=== PATIENT | female | born 1960 | race Caucasian/White ===

== ENCOUNTER → 2016-12-19 | Outpatient (CLI) | payer BC ==
[2016-12-19 07:33] LABS: BASO # 0.1 K/mm3 (0.0-0.2); BASO % 0.9 % (0.0-1.0); EOS # 0.1 K/mm3 (0.0-0.50); EOS % 2.1 % (0.0-3.0); LARGE UNSTAINED CELL # 0.1 K/mm3 (0.0-0.4); LARGE UNSTAINED CELL % 1.4 % (0.0-4.0); LYMPH # 1.9 K/mm3 (1.5-4.5); LYMPH % 26.7 % (24.0-44.0); MEAN CORPUSCULAR HEMOGLOBIN 28.4 pg (27.0-33.0); MEAN CORPUSCULAR HGB CONC 34.1 g/dl (32.0-36.5); MEAN CORPUSCULAR VOLUME 83.3 fl (80.0-96.0); MONO # 0.4 K/mm3 (0.0-0.8); MONO % 5.1 % (0.0-5.0); NEUTROPHILS # 4.4 K/mm3 (1.8-7.7); NEUTROPHILS % 63.8 % (36.0-66.0); PLATELET COUNT, AUTOMATED 296 k/mm3 (150-450); RED CELL DISTRIBUTION WIDTH 12.3 % (11.5-14.5); WHITE BLOOD COUNT 6.9 K/mm3 (4.0-10.0)
[2016-12-19 07:54] LABS: ALBUMIN 3.6 GM/DL (3.2-5.2); ALBUMIN/GLOBULIN RATIO 1.06 (1.00-1.93); ALKALINE PHOSPHATASE 81 U/L (45-117); ALT/SGPT 49 U/L (12-78); ANION GAP 8 MEQ/L (8-16); AST/SGOT 28 U/L (15-37); BLOOD UREA NITROGEN 23 MG/DL (7-18); CALCIUM LEVEL 8.9 MG/DL (8.5-10.1); CARBON DIOXIDE LEVEL 32 MEQ/L (21-32); CHLORIDE LEVEL 97 MEQ/L (98-107); CREATININE FOR GFR 0.82 MG/DL (0.55-1.02); GLOMERULAR FILTRATION RATE > 60.0 (>51); GLUCOSE, FASTING 213 MG/DL (70-105); POTASSIUM SERUM 3.9 MEQ/L (3.5-5.1); SODIUM LEVEL 137 MEQ/L (136-145)
== END ==
LOC: M LAB 07:05
PROVIDERS: ATTEND Family Medicine
DX: E11.59 Type 2 diabetes mellitus with other circulatory complications (principal)

== ENCOUNTER → 2017-03-29 | Outpatient (CLI) | payer BC ==
[2017-03-29 08:10] LABS: BASO % 0.6 % (0.0-1.0); EOS # 0.2 K/mm3 (0.0-0.50); EOS % 2.4 % (0.0-3.0); LARGE UNSTAINED CELL # 0.1 K/mm3 (0.0-0.4); LARGE UNSTAINED CELL % 0.8 % (0.0-4.0); LYMPH # 1.5 K/mm3 (1.5-4.5); LYMPH % 20.6 % (24.0-44.0); MEAN CORPUSCULAR HEMOGLOBIN 28.6 pg (27.0-33.0); MEAN CORPUSCULAR HGB CONC 33.1 g/dl (32.0-36.5); MEAN CORPUSCULAR VOLUME 86.6 fl (80.0-96.0); MONO # 0.4 K/mm3 (0.0-0.8); NEUTROPHILS % 70.5 % (36.0-66.0); PLATELET COUNT, AUTOMATED 249 k/mm3 (150-450); RED CELL DISTRIBUTION WIDTH 12.6 % (11.5-14.5)
[2017-03-29 08:43] LABS: ALBUMIN 3.6 GM/DL (3.2-5.2); ALKALINE PHOSPHATASE 80 U/L (45-117); ALT/SGPT 32 U/L (12-78); ANION GAP 6 MEQ/L (8-16); AST/SGOT 19 U/L (15-37); BILIRUBIN,TOTAL 0.8 MG/DL (0.2-1.0); BLOOD UREA NITROGEN 18 MG/DL (7-18); CARBON DIOXIDE LEVEL 31 MEQ/L (21-32); CHLORIDE LEVEL 103 MEQ/L (98-107); CHOLESTEROL LEVEL 199 MG/DL (<200); CREATININE FOR GFR 0.77 MG/DL (0.55-1.02); GLOMERULAR FILTRATION RATE > 60.0 (>51); GLUCOSE, FASTING 132 MG/DL (70-105); POTASSIUM SERUM 4.4 MEQ/L (3.5-5.1); SODIUM LEVEL 140 MEQ/L (136-145); TOTAL PROTEIN 7.2 GM/DL (6.4-8.2); TRIGLYCERIDES LEVEL 126 MG/DL (<150)
== END ==
LOC: M LAB 07:28
PROVIDERS: ATTEND Family Medicine
DX: E11.59 Type 2 diabetes mellitus with other circulatory complications (principal)

== ENCOUNTER → 2017-09-12 | Outpatient (REF) | payer BC | LOC: M SFHCLERA 12:40 | PROVIDERS: ATTEND Nurse Practitioner Family | DX: J02.9 Acute pharyngitis, unspecified (principal) ==

== ENCOUNTER → 2017-10-16 | Outpatient (CLI) | payer BC ==
[2017-10-16 08:40] LABS: ALBUMIN 3.7 GM/DL (3.2-5.2); ALBUMIN/GLOBULIN RATIO 1.09 (1.00-1.93); ALKALINE PHOSPHATASE 83 U/L (45-117); ALT/SGPT 30 U/L (12-78); ANION GAP 8 MEQ/L (8-16); AST/SGOT 22 U/L (7-37); BILIRUBIN,TOTAL 0.8 MG/DL (0.2-1.0); BLOOD UREA NITROGEN 16 MG/DL (7-18); CALCIUM LEVEL 8.7 MG/DL (8.5-10.1); CARBON DIOXIDE LEVEL 28 MEQ/L (21-32); CHLORIDE LEVEL 105 MEQ/L (98-107); CHOLESTEROL LEVEL 131 MG/DL (<200); CHOLESTEROL RISK RATIO 3.046 (<5); CREATININE FOR GFR 0.69 MG/DL (0.55-1.02); GLOMERULAR FILTRATION RATE > 60.0 (>51); GLUCOSE, FASTING 139 MG/DL (70-105); HDL CHOLESTEROL 43 MG/DL (>40); LDL CHOLESTEROL 69.8 MG/DL (<100); NON-HDL-C 88 MG/DL; POTASSIUM SERUM 3.9 MEQ/L (3.5-5.1); SODIUM LEVEL 141 MEQ/L (136-145); TOTAL PROTEIN 7.1 GM/DL (6.4-8.2); TRIGLYCERIDES LEVEL 91 MG/DL (<150)
[2017-10-16 11:32] LABS: ESTIMATED AVERAGE GLUCOSE 237 MG/DL (60-110); HEMOGLOBIN A1c 9.9 %
== END ==
LOC: M LAB 07:15
DX: M25.511 Pain in right shoulder (principal); E11.59 Type 2 diabetes mellitus with other circulatory complications
CPT/HCPCS: 84443

== ENCOUNTER → 2017-10-25 | Outpatient (REF) | payer BC | LOC: M SFHCLERA 10:15 | DX: J02.9 Acute pharyngitis, unspecified (principal) ==

== ENCOUNTER → 2018-01-30 | Outpatient (CLI) | payer BC ==
[2018-01-30 09:09] LABS: ANION GAP 5 MEQ/L (8-16); BLOOD UREA NITROGEN 18 MG/DL (7-18); CALCIUM LEVEL 8.6 MG/DL (8.5-10.1); CARBON DIOXIDE LEVEL 30 MEQ/L (21-32); CHLORIDE LEVEL 105 MEQ/L (98-107); CREATININE FOR GFR 0.71 MG/DL (0.55-1.30); FREE T4 1.14 NG/DL (0.76-1.46); GLOMERULAR FILTRATION RATE > 60.0 (>51); GLUCOSE, FASTING 162 MG/DL (70-100); POTASSIUM SERUM 4.2 MEQ/L (3.5-5.1); SODIUM LEVEL 140 MEQ/L (136-145)
[2018-01-30 10:05] LABS: ESTIMATED AVERAGE GLUCOSE 174 MG/DL (60-110); HEMOGLOBIN A1c 7.7 %
[2018-01-30 10:37] LABS: TOTAL 25(OH) VITAMIN D 57.4 NG/ML (30.0-100.0)
== END ==
LOC: M LAB 07:47
DX: E11.59 Type 2 diabetes mellitus with other circulatory complications (principal); F33.1 Major depressive disorder, recurrent, moderate
CPT/HCPCS: 84443

== ENCOUNTER → 2018-08-12 | Outpatient (CLI) | payer BC ==
[2018-08-12 08:14] LABS: ALBUMIN 3.1 GM/DL (3.2-5.2); ALBUMIN/GLOBULIN RATIO 0.94 (1.00-1.93); ALKALINE PHOSPHATASE 88 U/L (45-117); ALT/SGPT 33 U/L (12-78); ANION GAP 7 MEQ/L (8-16); AST/SGOT 22 U/L (7-37); BILIRUBIN,TOTAL 0.8 MG/DL (0.2-1.0); BLOOD UREA NITROGEN 13 MG/DL (7-18); CARBON DIOXIDE LEVEL 27 MEQ/L (21-32); CHLORIDE LEVEL 105 MEQ/L (98-107); CHOLESTEROL LEVEL 169 MG/DL (<200); CREATININE FOR GFR 0.69 MG/DL (0.55-1.30); FREE T4 1.15 NG/DL (0.76-1.46); GLOMERULAR FILTRATION RATE > 60.0 (>51); GLUCOSE, FASTING 229 MG/DL (70-100); HDL CHOLESTEROL 44 MG/DL (>40); LDL CHOLESTEROL 105 MG/DL (<100); NON-HDL-C 125 MG/DL; POTASSIUM SERUM 4.1 MEQ/L (3.5-5.1); SODIUM LEVEL 139 MEQ/L (136-145); TOTAL PROTEIN 6.4 GM/DL (6.4-8.2); TRIGLYCERIDES LEVEL 100 MG/DL (<150)
[2018-08-12 14:30] LABS: ESTIMATED AVERAGE GLUCOSE 220 MG/DL (60-110); HEMOGLOBIN A1c 9.3 %
== END ==
LOC: M LAB 06:57
DX: E11.59 Type 2 diabetes mellitus with other circulatory complications (principal); E78.5 Hyperlipidemia, unspecified
CPT/HCPCS: 84443

== ENCOUNTER → 2018-11-08 | Outpatient (CLI) | payer BC ==
[2018-11-08 07:56] LABS: BLOOD UREA NITROGEN 25 MG/DL (7-18); CALCIUM LEVEL 8.9 MG/DL (8.5-10.1); CARBON DIOXIDE LEVEL 30 MEQ/L (21-32); CHLORIDE LEVEL 98 MEQ/L (98-107); CREATININE FOR GFR 0.94 MG/DL (0.55-1.30); GLOMERULAR FILTRATION RATE > 60.0 (>51); GLUCOSE, FASTING 115 MG/DL (70-100); POTASSIUM SERUM 4.2 MEQ/L (3.5-5.1); SODIUM LEVEL 136 MEQ/L (136-145)
[2018-11-08 11:01] LABS: HEMOGLOBIN A1c 6.8 %
== END ==
LOC: M LAB 06:57
PROVIDERS: ATTEND Physician Assistant
DX: E11.59 Type 2 diabetes mellitus with other circulatory complications (principal)

== ENCOUNTER → 2019-04-30 | Outpatient (CLI) | payer BC ==
--- NOTE | 2019-04-30 08:29 | REP ---
Clinical: Bilateral shoulder pain . Technique: Internal rotation, external rotation, and Y view right and left shoulders. Findings: Left shoulder demonstrates a minimal cortical irregularity and subtle spurring at the acromioclavicular joint. The glenohumeral joint is intact and normal. The subacromial space is normal. No periarticular calcifications or loose bodies are appreciated. Surrounding soft tissues are unremarkable. Right shoulder demonstrates mild cortical irregularity and mild spurring at the acromioclavicular joint. The glenohumeral joint is intact and normal. The subacromial space is normal. No periarticular calcifications or loose bodies are appreciated. Surrounding soft tissues are unremarkable. Impression: Mild arthritic changes involving the bilateral acromioclavicular joints (right greater than left). Electronically Signed by Alfonzo Mariscal MD 04/30/2019 08:20 A
== END ==
LOC: M RAD 07:48
PROVIDERS: ATTEND Physician Assistant
DX: M25.512 Pain in left shoulder (principal)

== ENCOUNTER 2019-05-29 11:45 | Outpatient (RCR) | payer BC | END 2019-05-31 | LOC: M PT 11:45 | PROVIDERS: ATTEND Physician Assistant | DX: Z51.89 Encounter for other specified aftercare (principal); M25.511 Pain in right shoulder; M25.512 Pain in left shoulder ==

== ENCOUNTER 2019-06-05 08:00 | Outpatient (RCR) | payer BC | END 2019-06-30 | LOC: M PT 08:00 | PROVIDERS: ATTEND Physician Assistant | DX: Z51.89 Encounter for other specified aftercare (principal); M25.511 Pain in right shoulder; M25.512 Pain in left shoulder ==

== ENCOUNTER → 2019-10-30 | Outpatient (CLI) | payer BC ==
--- NOTE | 2019-10-31 01:33 | REP ---
Clinical: Left knee pain. Technique: AP, lateral, bilateral oblique and sunrise views of the left knee. Findings: Early arthritic changes include cortical irregularity and spurring involving the femoral condyles, spurring of the tibial spines with irregular sclerosis to the tibial plateau as well as spurring along the posterior patellar margin with minimal subchondral sclerosis. No acute fracture dislocation. No effusion. Impression: Early osteoarthritic degenerative changes Electronically Signed by Alfonzo Mariscal MD 10/31/2019 01:24 A
== END ==
LOC: M RAD 14:24
PROVIDERS: ATTEND Physician Assistant
DX: M25.562 Pain in left knee (principal); M17.12 Unilateral primary osteoarthritis, left knee

== ENCOUNTER 2019-11-24 07:56 | Outpatient (RCR) | payer BC | END 2019-11-29 | LOC: M PT 07:56 | PROVIDERS: ATTEND Physician Assistant | DX: M25.562 Pain in left knee (principal) ==

== ENCOUNTER → 2019-11-24 | Outpatient (CLI) | payer BC ==
[2019-11-24 07:26] LABS: BASO % 0.5 % (0.0-1.0); EOS # 0.1 10^3/uL (0.0-0.5); EOS % 1.6 % (0.0-3.0); HEMATOCRIT 40.8 % (36.0-47.0); HEMOGLOBIN 13.3 g/dl (12.0-15.5); LYMPH # 1.8 10^3/uL (1.5-5.0); LYMPH % 24.1 % (24.0-44.0); MEAN CORPUSCULAR HEMOGLOBIN 27.4 pg (27.0-33.0); MEAN CORPUSCULAR HGB CONC 32.6 g/dl (32.0-36.5); MONO # 0.5 10^3/uL (0.0-0.8); MONO % 6.6 % (0.0-5.0); NEUTROPHILS % 66.9 % (36.0-66.0); PLATELET COUNT, AUTOMATED 280 10^3/uL (150-450); RED BLOOD COUNT 4.86 10^6/uL (4.00-5.40); WHITE BLOOD COUNT 7.5 10^3/uL (4.0-10.0)
[2019-11-24 07:43] LABS: HEMOGLOBIN A1c 9.4 %
[2019-11-24 07:51] LABS: ALBUMIN 3.6 GM/DL (3.2-5.2); ALT/SGPT 57 U/L (12-78); BILIRUBIN,TOTAL 0.8 MG/DL (0.2-1.0); BLOOD UREA NITROGEN 27 MG/DL (7-18); CALCIUM LEVEL 9.4 MG/DL (8.5-10.1); CARBON DIOXIDE LEVEL 28 MEQ/L (21-32); CHLORIDE LEVEL 102 MEQ/L (98-107); CREATININE FOR GFR 0.98 MG/DL (0.55-1.30); GLOMERULAR FILTRATION RATE > 60.0 (>51); GLUCOSE, FASTING 209 MG/DL (70-100); POTASSIUM SERUM 3.5 MEQ/L (3.5-5.1); SODIUM LEVEL 137 MEQ/L (136-145); TOTAL PROTEIN 6.8 GM/DL (6.4-8.2)
[2019-11-24 08:07] LABS: MALB URINE SIEMENS 21.8 MG/L
== END ==
LOC: M LAB 06:50
PROVIDERS: ATTEND Family Medicine
DX: E11.59 Type 2 diabetes mellitus with other circulatory complications (principal)

== ENCOUNTER → 2020-02-09 | Outpatient (CLI) | payer BC ==
[~2020-02-09] MED LIST: ASPI81TA85 PO; BUPR150T3 PO; BYST2.5T2 PO; CLOP75TA2 PO; ESOM1CAP5 PO; FLUO40CA PO; HYDR25TAB PO; LOSA50TA88 PO; METF10004 PO; SIMV20TA22 PO; VICT18IN SC
== END ==
LOC: M LABSMTC 11:39
PROVIDERS: ATTEND Anesthesiology
DX: Z01.818 Encounter for other preprocedural examination (principal); Z11.59 Encounter for screening for other viral diseases
CPT/HCPCS: C9803; U0002

== ENCOUNTER 2020-02-11 06:08 | Day surgery (SDC) | payer BC ==
[~2020-02-11] VITALS: Ht 162.6 cm; Wt 119.7 kg
[~2020-02-11 06:08] MED LIST changes: +LIDOCAINE 1% MDV 20ML VIAL SQ PRN; +LR 1,000 ML IV ONE
[2020-02-11] MEDS ORDERED: fentaNYL 100 MCG/2 ML INJECTION (J3010) As Ordered ONE (06:50)
[2020-02-11] MEDS ORDERED: propofoL 200 MG/20 ML VIAL As Ordered ONE (06:51)
[2020-02-11] MEDS ORDERED: LIDOCAINE 2% 100MG/5ML SDV (FOR ANES.) As Ordered ONE (06:51)
[2020-02-11] MEDS ORDERED: MIDAZOLAM INJ 2MG/2ML VIAL (J2250 PER 1MG) As Ordered ONE (06:51)
[2020-02-11] MEDS ORDERED: ONDANSETRON 4MG/2ML VIAL As Ordered ONE (06:51)
[2020-02-11] MEDS ORDERED: LR 1,000 ML IV ONE (07:00)
[2020-02-11] MEDS ORDERED: BUPIVACAINE/EPIN 0.25% 30 ML VIAL As Ordered ONE (07:26)
[2020-02-11] MEDS ORDERED: ACETAMINOPHEN 1000MG 100ML IV BTL (OFIRMEV) (J0131 PER 10MG) As Ordered ONE (07:43)
[2020-02-11] MEDS ORDERED: PHENYLephrine HCL 500 MCG/5 ML (100MCG/ML) SYRINGE (J2370) As Ordered ONE (08:10)
[2020-02-11] MEDS ORDERED: ePHEDrine SULFATE 25 MG/5 ML(5MG/ML) SYRINGE As Ordered ONE (08:10)
[2020-02-11] MEDS ORDERED: oxyCODONE 5MG TAB PO PRN (08:45)
[2020-02-11] MEDS ORDERED: LR 1,000 ML IV SCH (08:45)
[2020-02-11] MEDS ORDERED: fentaNYL 100 MCG/2 ML INJECTION (J3010) IV PRN (08:45)
[2020-02-11] MEDS ORDERED: ONDANSETRON 4MG/2ML VIAL IV PRN (08:45)
[2020-02-11 09:55] VITALS: BP 130/64
--- NOTE | 2020-02-11 10:01 | RO ---
DATE OF PROCEDURE: 02/11/2020 PREOPERATIVE DIAGNOSIS: Left carpal and cubital tunnel syndrome. POSTOPERATIVE DIAGNOSIS: Left carpal and cubital tunnel syndrome. PROCEDURE: Left endoscopic carpal tunnel release and open cubital tunnel release with anterior transposition. SURGEON: Dr. Duglas Martínez BANKING OFFICER: REGINALD Rodriguez (who was essential for retraction during larios portions of procedure). ANESTHESIA: General. INDICATIONS: This is a 59-year-old female who failed nonoperative mode of treatment. We discussed the risks and benefits of surgical release, including but not limited to infection, damage to surrounding structures, incomplete relief, and patient wishes to proceed. ESTIMATED BLOOD LOSS: Minimal. TOURNIQUET TIME: Approximately 25 minutes. PREOPERATIVE ANTIBIOTICS: None. OPERATIVE DESCRIPTION: The patient was brought back to the operating room (OR) in the supine position. Underwent general anesthesia, at which point, the left arm was prepped and draped in the usual fashion. We then had time-out to confirm site and surgery. Once in agreeement, we injected 20 mL of 0.25% Marcaine with epinephrine overlying the incisions. We then made a transverse incision overlying the palmaris longus, sharply dissected and retracted the palmaris longus radially, at which point, we encountered the antebrachial fascia. We sharply incised this and used a two prong skin hook to elevate. We then inserted the dilator, synovial stripper and endoscopic camera. Once the median nerve was visualized and safely out of view we released the transverse carpal ligament from distal to proximal. Once it was adequately release, we irrigated the wound thoroughly and closed with #3-0 Vicryl, #3-0 Prolene, Mastisol, Steri, gauze, and Tegaderm. We then turned our attention to the elbow, made a longitudinal incision between the medial epicondyle and olecranon. Sharply dissected through subcutaneous tissues, careful to monitor for the medial and antebrachial cutaneous nerve. We then identified the ulnar nerve at the proximal extent of the excision anterior to medial head of triceps. We followed it distally through Winter ligament and through superficial and deep fascia at flexor carpi ulnaris (FCU) and approximate of the intermuscular septum. We then did a thorough ulnar neurolysis, at which point, we transposed the nerve anterior to the medial epicondyle. We closed with #3-0 Prolene the Winter ligament to the medial epicondyle to prevent subluxation back into the tunnel. At which point, we ranged the elbow. There was no subluxation over the medial epicondyle. So, we irrigated the wound thoroughly and closed with #3-0 Vicryl, #3-0 Monocryl, Mastisol, Steri, gauze, and Tegaderm. Placed a Kerlix and Zackary over it around the wound. The patient was awakened and taken to the post anesthesia care unit (PACU) in stable condition. Postop Plan: The patient will work on pain control and range of motion, and we will see her at 2 week visit for clinical check.
== END 2020-02-11 10:15 | disposition home or self-care (01) ==
LOC: M SDC 06:08
PROVIDERS: ATTEND Orthopaedic Surgery Hand Surgery
DX: G56.02 Carpal tunnel syndrome, left upper limb (principal); G56.22 Lesion of ulnar nerve, left upper limb; I10 Essential (primary) hypertension; I25.10 Atherosclerotic heart disease of native coronary artery without angina pectoris; I25.2 Old myocardial infarction; E11.9 Type 2 diabetes mellitus without complications; K21.9 Gastro-esophageal reflux disease without esophagitis; G43.909 Migraine, unspecified, not intractable, without status migrainosus; F32.9 Major depressive disorder, single episode, unspecified; Z98.61 Coronary angioplasty status; Z79.02 Long term (current) use of antithrombotics/antiplatelets; Z79.84 Long term (current) use of oral hypoglycemic drugs; Z79.82 Long term (current) use of aspirin; Z79.899 Other long term (current) drug therapy; G47.30 Sleep apnea, unspecified
CPT/HCPCS: 29848; 64718; J0131; J2250; J2370; J2405; J3010

== ENCOUNTER → 2020-08-11 | Outpatient (CLI) | payer SELFPAY ==
[~2020-08-11] MED LIST changes: -ASPI81TA85 PO; +ASPI81TA86 PO; -LIDOCAINE 1% MDV 20ML VIAL SQ PRN; -LR 1,000 ML IV ONE
== END ==
LOC: M LABSMTC 12:59
PROVIDERS: ATTEND Pediatrics
DX: Z20.828 Contact with and (suspected) exposure to other viral communicable diseases (principal)

== ENCOUNTER → 2020-09-07 | Outpatient (CLI) | payer BC ==
[2020-09-07 07:45] LABS: BASO # 0.1 10^3/uL (0.0-0.2); BASO % 0.8 % (0.0-1.0); EOS # 0.2 10^3/uL (0.0-0.5); EOS % 2.4 % (0.0-3.0); HEMATOCRIT 38.5 % (36.0-47.0); HEMOGLOBIN 11.9 g/dl (12.0-15.5); LYMPH # 1.5 10^3/uL (1.5-5.0); LYMPH % 23.6 % (24.0-44.0); MEAN CORPUSCULAR HEMOGLOBIN 26.8 pg (27.0-33.0); MEAN CORPUSCULAR HGB CONC 30.9 g/dl (32.0-36.5); MEAN CORPUSCULAR VOLUME 86.7 fl (80.0-96.0); MONO # 0.4 10^3/uL (0.0-0.8); MONO % 5.6 % (0.0-5.0); NEUTROPHILS # 4.2 10^3/uL (1.5-8.5); NEUTROPHILS % 67.3 % (36.0-66.0); PLATELET COUNT, AUTOMATED 302 10^3/uL (150-450); RED BLOOD COUNT 4.44 10^6/uL (4.00-5.40); WHITE BLOOD COUNT 6.2 10^3/uL (4.0-10.0)
[2020-09-07 08:18] LABS: ALBUMIN 3.3 GM/DL (3.2-5.2); BILIRUBIN,TOTAL 0.6 MG/DL (0.2-1.0); CALCIUM LEVEL 8.9 MG/DL (8.5-10.1); CHOLESTEROL RISK RATIO 3.309 (<5); CREATININE FOR GFR 1.05 MG/DL (0.55-1.30); FREE T4 1.2 NG/DL (0.76-1.46); GLOMERULAR FILTRATION RATE 57.3 (>51); POTASSIUM SERUM 4.2 MEQ/L (3.5-5.1); THYROID STIMULATING HORMONE 1.88 uIU/ML (0.358-3.740); TOTAL PROTEIN 7.1 GM/DL (6.4-8.2)
[2020-09-07 09:01] LABS: TOTAL 25(OH) VITAMIN D 21.6 NG/ML (30.0-100.0)
[2020-09-07 09:58] LABS: HEMOGLOBIN A1c 7.1 %
== END ==
LOC: M LAB 06:49
PROVIDERS: ATTEND Physician Assistant
DX: E11.59 Type 2 diabetes mellitus with other circulatory complications (principal); E78.5 Hyperlipidemia, unspecified; E55.9 Vitamin D deficiency, unspecified; G47.33 Obstructive sleep apnea (adult) (pediatric)

== ENCOUNTER → 2020-12-20 | Outpatient (CLI) | payer BC ==
[~2020-12-20] MED LIST changes: +BUPR150T12 PO; -BUPR150T3 PO; +HYDR-3490 PO; -HYDR25TAB PO
[2020-12-20 15:13] LABS: BASO # 0.1 10^3/uL (0.0-0.2); EOS # 0.1 10^3/uL (0.0-0.5); EOS % 1.4 % (0.0-3.0); HEMATOCRIT 38.6 % (36.0-47.0); HEMOGLOBIN 12.6 g/dl (12.0-15.5); LYMPH # 2.2 10^3/uL (1.5-5.0); LYMPH % 26.7 % (24.0-44.0); MEAN CORPUSCULAR HEMOGLOBIN 27.9 pg (27.0-33.0); MEAN CORPUSCULAR HGB CONC 32.6 g/dl (32.0-36.5); MEAN CORPUSCULAR VOLUME 85.4 fl (80.0-96.0); MONO # 0.6 10^3/uL (0.0-0.8); MONO % 7.2 % (2.0-8.0); NEUTROPHILS # 5.3 10^3/uL (1.5-8.5); NEUTROPHILS % 63.6 % (36.0-66.0); PLATELET COUNT, AUTOMATED 308 10^3/uL (150-450); RED BLOOD COUNT 4.52 10^6/uL (4.00-5.40); WHITE BLOOD COUNT 8.4 10^3/uL (4.0-10.0)
[2020-12-20 16:44] LABS: ALBUMIN 3.8 GM/DL (3.2-5.2); BILIRUBIN,TOTAL 0.5 MG/DL (0.2-1.0); CALCIUM LEVEL 9.4 MG/DL (8.5-10.1); CREATININE FOR GFR 1.27 MG/DL (0.55-1.30); FREE T4 1.23 NG/DL (0.76-1.46); MAGNESIUM LEVEL 1.8 MG/DL (1.8-2.4); PERCENT SATURATION 19.4 % (13.2-45.0); POTASSIUM SERUM 3.6 MEQ/L (3.5-5.1); THYROID STIMULATING HORMONE 1.08 uIU/ML (0.358-3.740)
[2020-12-20 16:46] LABS: TOTAL 25(OH) VITAMIN D 57.5 NG/ML (30.0-100.0)
== END ==
LOC: M LAB 14:18
PROVIDERS: ATTEND Physician Assistant
DX: R53.83 Other fatigue (principal); I49.9 Cardiac arrhythmia, unspecified